=== PATIENT | female | born 1995 | race Caucasian/White ===

== ENCOUNTER → 2023-06-13 18:42 | Outpatient (CLI) | payer OTHER, SELFPAY ==
--- NOTE | 2023-06-13 18:44 | DI.MRI.S_ITS ---
PROCEDURE: MR KNEE RT WO CON INDICATIONS: INJURY TO RT LOWER LEG TECHNIQUE: Noncontrast sagittal PD fast spin echo and T2 fast spin echo with fat saturation, sagittal 3-D FLASH with fat saturation; coronal T1 spin echo and PD fast spin echo with fat saturation, and axial PD fast spin echo with fat saturation through the knee. COMPARISON: None. FINDINGS: Image quality: Excellent. Menisci: The medial and lateral menisci demonstrate normal morphology and internal signal. The meniscal root ligaments appear intact. Cruciate ligaments: The anterior and posterior cruciate ligaments appear intact. Medial structures: The medial collateral ligament appears intact. The semimembranosus tendon insertions and meniscocapsular junction appear intact. Visualized portions of the pes anserinus tendons appear intact without associated bursal fluid collections. Lateral structures: The lateral collateral ligament, long and short heads of the biceps femoris tendon appear intact. The popliteus tendon appears intact. Iliotibial band appears normal. Anterior structures: The quadriceps and patellar tendons appear intact. There is mild tendinopathy in the proximal patellar tendon. Patellar alignment is normal. No femoral trochlear dysplasia or ventral trochlear prominence. There is a small amount of fluid in the deep infrapatellar bursa. There is minimal edema within the infrapatellar fat pad. There is mild edema within the suprapatellar fat pad with mild irregularity of suprapatellar plica. Posterior structures: There is minimal intramuscular edema within the medial and lateral heads of the gastrocnemius compatible with mild strains. Bones and cartilage: No bone marrow contusions or fractures. The cartilage of the medial and lateral femorotibial compartments, as well as the patellofemoral compartment, appears preserved in thickness. Joint space: There is a minimal joint effusion. No De La Cruz's cyst. Normal appearing synovial plicae are incidentally noted. IMPRESSION: 1. Mild edema within the suprapatellar fat with mild irregularity of suprapatellar plica suggestive of a mild sprain or impingement. 2. Mild muscle edema within the medial and lateral heads of the gastrocnemius compatible with mild strains. 3. Small amount of fluid within the deep infrapatellar bursa. Dictated by: Guilherme Moran M.D. on 06/13/2023 at 20:08 Approved by: Guilherme Moran M.D. on 06/13/2023 at 20:17
== END ==
PROVIDERS: Referring Provider Student in an Organized Health Care Education/Training Program; Visit Provider Student in an Organized Health Care Education/Training Program
DX: S89.91XA Unspecified injury of right lower leg, initial encounter (principal); X58.XXXA Exposure to other specified factors, initial encounter
CPT/HCPCS: 73721